=== PATIENT | male | born 1945 | race Caucasian/White ===

== ENCOUNTER 2021-09-02 13:52 | Outpatient (CLI) | payer MEDICARE, SELFPAY ==
[2021-09-02 21:31] LABS: Chloride* 93 mmol/L (96-114); Potassium* 5.5 mmol/L (3.6-5.1)
[2021-09-02 21:33] LABS: Creatinine* 1.1 mg/dL (0.5-1.5); Estimated Glomerular Filt Rate 68.71
[2021-09-02 21:34] LABS: Blood Urea Nitrogen* 18 mg/dL (7-30); Calcium* 8.8 mg/dL (8.4-10.6); Carbon Dioxide* 22 mmol/L (20-32); Glucose* 96 mg/dL (60-115)
[2021-09-02 21:49] LABS: Free T4 Free Thyroxine* 1.01 ng/dL (0.70-1.85)
[2021-09-02 22:17] LABS: Sodium* 123 mmol/L (135-149)
== END 2021-09-02 13:53 | disposition home or self-care (01) ==
PROVIDERS: PCP Family Medicine; Visit Provider Family Medicine
DX: Z01.818 Encounter for other preprocedural examination (principal); E03.9 Hypothyroidism, unspecified; I10 Essential (primary) hypertension; R53.83 Other fatigue
CPT/HCPCS: 80048; 84439; 84443

== ENCOUNTER 2022-06-05 08:41 | Outpatient (CLI) | payer MEDICARE, SELFPAY | END 2022-06-05 08:42 | disposition home or self-care (01) | PROVIDERS: PCP Family Medicine; Visit Provider Family Medicine | DX: Z00.00 Encounter for general adult medical examination without abnormal findings (principal); E03.9 Hypothyroidism, unspecified; E78.5 Hyperlipidemia, unspecified; I10 Essential (primary) hypertension; E66.9 Obesity, unspecified; D64.9 Anemia, unspecified; Z12.5 Encounter for screening for malignant neoplasm of prostate; Z95.1 Presence of aortocoronary bypass graft | CPT/HCPCS: 80053; 80061; 84153; 84443 ==

== ENCOUNTER 2022-10-20 10:33 | Outpatient (CLI) | payer MEDICARE, SELFPAY | END 2022-10-20 10:34 | disposition home or self-care (01) | PROVIDERS: PCP Family Medicine; Referring Provider Family Medicine; Visit Provider Family Medicine | DX: E03.9 Hypothyroidism, unspecified (principal); E87.1 Hypo-osmolality and hyponatremia | CPT/HCPCS: 80048; 84443 ==